=== PATIENT | female | born 1955 | race African-American/Black ===

== ENCOUNTER 2017-11-11 19:01 | Emergency (ER) | payer MEDICARE, MEDICAID ==
[~2017-11-11] VITALS: Ht 167.6 cm; Wt 80.0 kg
[~2017-11-11 19:01] MED LIST: CLON2TAB4 PO; QUET50TA PO
[2017-11-11] MEDS ORDERED: SODIUM CHLORIDE 0.9% 1,000 ML IV ONE (22:29)
[2017-11-11] MEDS ORDERED: ACETAMINOPHEN 325MG TABLET PO STA (22:29)
[2017-11-11] MEDS ORDERED: LEVETIRACETAM 500MG PREMIX 100 ML IV ONE (22:30)
[2017-11-11 22:57] LABS: INR 1.1; PROTHROMBIN TIME 11.7 sec (9.4-11.6)
[2017-11-11 22:58] LABS: BASOPHILS % 1.2 % (0.0-2.0); HEMATOCRIT. 41.2 % (36.0-48.0); HEMOGLOBIN. 13.8 g/dL (12.0-16.0); LYMPHOCYTES % 48.2 % (20.0-50.0); MEAN CORPUSCULAR HEMOGLOBIN 31.6 pg (28.0-32.0); MEAN CORPUSCULAR VOLUME 94.2 fL (81.0-99.0); MONOCYTES % 8.8 % (2.0-8.0); NEUTROPHILS % 35.8 % (40.0-76.0); PLATELET 165 x1000/uL (130-400); RED BLOOD CELL COUNT 4.37 mill/uL (4.2-5.4); RED CELL DISTRIBUTION WIDTH 14.2 % (11.6-14.6)
[2017-11-11 23:02] LABS: AMMONIA 28 uMol/L (<32)
[2017-11-11 23:03] LABS: CARBON DIOXIDE 25 mEq/L (21-32); CHLORIDE 106 mEq/L (98-107); ETHANOL BLOOD < 10 mg/dL
[2017-11-11 23:07] LABS: CREATINE KINASE 80 IU/L (26-192)
[2017-11-11 23:10] LABS: TROPONIN I < 0.02 ng/mL (0.00-0.04)
[2017-11-12 02:03] VITALS: BP 121/79
== END 2017-11-12 02:08 | disposition home or self-care (01) ==
LOC: ER 19:01 → CANBEDREQ 11-12 01:54 → ER 11-12 02:08
DX: G40.409 Other generalized epilepsy and epileptic syndromes, not intractable, without status epilepticus (principal); J01.10 Acute frontal sinusitis, unspecified; J01.20 Acute ethmoidal sinusitis, unspecified; F20.9 Schizophrenia, unspecified; I10 Essential (primary) hypertension; J45.909 Unspecified asthma, uncomplicated; Z88.0 Allergy status to penicillin; Z91.14 Patient's other noncompliance with medication regimen
CPT/HCPCS: 36415; 70450; 71045; 80053; 82140; 82550; 83605; 83690; 83880; 84443; 84484; 85025; 85610; 93005; 96365; 99285; G0482; J1953; J7030

== ENCOUNTER 2021-08-15 02:01 | Emergency (ER) | payer BC, MEDICAID ==
[~2021-08-15] VITALS: Ht 162.6 cm; Wt 77.0 kg
[~2021-08-15 02:01] MED LIST changes: +CLON2TAB11 PO; -CLON2TAB4 PO
[2021-08-15] MEDS ORDERED: TETANUS, DIPHTHERIA, PERTUSSIS VAC/PF 0.5ML (>10YR OLD) IM ONE (02:30)
[2021-08-15] MEDS ORDERED: BACITRACIN 15GM TUBE TOP ONE (02:30)
[2021-08-15] MEDS ORDERED: MORPHINE SULFATE 4 MG/ML CPJ (NOT FOR IM USE) IV STA (02:30)
[2021-08-15] MEDS ORDERED: ONDANSETRON HCL 4MG/2ML INJ IV STA (02:30)
[2021-08-15] MEDS ORDERED: SODIUM CHLORIDE 0.9% 1,000 ML IV ONE (02:30)
[2021-08-15 07:41] VITALS: BP 121/72
[2021-08-15] MEDS ORDERED: MORPHINE SULFATE 2 MG/ML CPJ (NOT FOR IM USE) IV SCH (07:45)
[2021-08-15] MEDS ORDERED: MORPHINE SULFATE 4 MG/ML CPJ (NOT FOR IM USE) IV ONE (07:45)
== END 2021-08-15 08:34 | disposition short-term general hospital (02) ==
LOC: ER 02:01
DX: T22.20XA Burn of second degree of shoulder and upper limb, except wrist and hand, unspecified site, initial encounter (principal); J45.909 Unspecified asthma, uncomplicated; F20.9 Schizophrenia, unspecified; I10 Essential (primary) hypertension; R56.9 Unspecified convulsions; F17.210 Nicotine dependence, cigarettes, uncomplicated; X06.2XXA Exposure to ignition of other clothing and apparel, initial encounter; X04.XXXA Exposure to ignition of highly flammable material, initial encounter; Y93.89 Activity, other specified; Y92.9 Unspecified place or not applicable; Z71.6 Tobacco abuse counseling; Z88.0 Allergy status to penicillin; Z88.6 Allergy status to analgesic agent; Z20.822 Contact with and (suspected) exposure to COVID-19
CPT/HCPCS: 16020; 87426; 90471; 90715; 96361; 96374; 96375; 96376; 99285; 99406; J2270; J2405; J7030